=== PATIENT | female | born 2000 | race Caucasian/White ===

== ENCOUNTER 2020-01-06 14:13 | Emergency (ER) | payer BC ==
[~2020-01-06] VITALS: Ht 160 cm; Wt 61.4 kg
[2020-01-06 14:22] VITALS: TEMP 98.3
[2020-01-06 15:20] LABS: BASO % 0.6 % (0.0-2.0); EOS # 0.2 (0.0-0.7); EOS % 2.6 % (0-4.0); GRAN # 3.2 (1.4-6.5); GRAN % 48.7 % (42.2-75.2); HEMATOCRIT 38.6 % (35.0-45.0); HEMOGLOBIN 12.4 g/dl (12.0-15.0); LYMPH # 2.5 (1.2-3.4); LYMPH % 38.5 % (20.0-51.0); MEAN CELL VOLUME 82 fl (80.0-95.0); MEAN CORPUSCULAR HEMOGLOBIN 26 pg (26.0-32.0); MEAN CORPUSCULAR HGB CONC 32 g/dl (33.0-37.0); MEAN PLATELET VOLUME 9.1 fl (7.4-10.4); MONO # 0.6 (0.1-0.6); MONO % 9.4 % (1.7-9.3); PLATELET COUNT 375 K/mm3 (130-400); RED BLOOD COUNT 4.69 M/mm3 (4.10-5.30); REDCELL DISTRIBUTION WIDTH-CV 13.6 % (11.5-14.5)
[2020-01-06 15:33] LABS: ALANINE AMINOTRANSFERASE 13 U/L (4-34); ALBUMIN 4.3 gm/dL (3.5-5.0); ALKALINE PHOSPHATASE 74 U/L (50-136); ANION GAP 7 mmol/L (7-16); AST,SGOT 29 U/L (15-37); BILIRUBIN,TOTAL 0.5 mg/dL (0.0-1.0); BLOOD UREA NITROGEN 11 mg/dL (7-17); CALCIUM 9.6 mg/dL (8.4-10.2); CARBON DIOXIDE 26 mmol/L (22-30); CHLORIDE 103 mmol/L (98-107); CREATININE, serum 0.87 (0.52-1.25); GLUCOSE 95 mg/dL (74-106); LIPASE 57 U/L (23-300); POTASSIUM 4.2 mmol/L (3.4-5.0); SODIUM 136 mmol/L (137-145); TOTAL PROTEIN 7.2 gm/dL (6.4-8.2)
[2020-01-06 15:36] LABS: C-REACTIVE PROTEIN < 0.5 mg/dL (0.0-0.9)
[2020-01-06 17:34] VITALS: BP 104/75; PULSE 68
== END 2020-01-06 17:29 | disposition home or self-care (01) ==
LOC: COL.ER 14:13
PROVIDERS: Emergency Medicine
DX: K92.1 Melena (principal); R10.84 Generalized abdominal pain; Z90.89 Acquired absence of other organs
CPT/HCPCS: J7030; Q9967

== ENCOUNTER 2020-02-15 06:27 | Day surgery (SDC) | payer BC ==
[~2020-02-15] VITALS: Ht 160 cm; Wt 62.4 kg
[2020-02-15 06:33] VITALS: BP 116/81; PULSE 99; TEMP 98.4
--- NOTE | 2020-02-15 07:50 | NUR ---
0730- attempted to place a #22 into left hand of patient; unsuccesful. Asked endo nurseAdriane to start IV. endo nurse stated, 'pt is fainting'. Reclined pt chair and applied wet wash cloth. Notified anesthesia of pt status, anesthesia provider stated he would try to put IV in. Pt stated, "i need to use the bathroom". Asked pt if she could walk with assist or if she wanted a wc. pt stated, 'I can walk'. Pt ambulating to the bathroom with x2 assist. Pt began to sit on the floor. pt diaphoretic, will open eyes to name. Helped pt back on chair and stated she was nauseated. Emesis bag was given to pt, pt vomiting clear emesis. o2 per mask was applied, pt was put on cart and taken to the Endo suite for IV and procedure.
[2020-02-15 08:25] VITALS: BP 100/79; PULSE 120; TEMP 97.6
[2020-02-15 08:30] VITALS: BP 102/78; PULSE 85
[2020-02-15 08:45] VITALS: BP 113/66; PULSE 85
[2020-02-15 09:00] VITALS: BP 98/69; PULSE 75; TEMP 97.6
--- NOTE | 2020-02-15 09:45 | NUR ---
PT A/OX3, SLEEPY. HR TACHY AND REGULAR. LUNGS CLEAR, BOWEL SOUNDS QUIET. PT DENIES PAIN, NAUSEA AND VOMITING. ASKS FOR WATER AND APPLE SAUCE. VSS WILL CONT TO MONITOR.
--- NOTE | 2020-02-15 09:55 | NUR ---
TOLERATING FOOD AND FLUID. ALERT AND ORIENTED. DENIES PAIN. WILL CONT TO MONITOR.
--- NOTE | 2020-02-15 10:01 | NUR ---
PT A/OX3, DENIES PAIN OR NAUSEA. #20 REMOVED FORM RIGHT WRIST. PT TOLERATED WELL. DISMISSAL INSTRUCTIONS GIVEN, PT VOICES UNDERSTANDING. PT CALLED [facility] FOR A RIDE HOME. PT DISCHARGED THROUGH PT ENTRANCE PER , MASK ON AND INTO DAD'S TRUCK.
== END 2020-02-15 09:30 | disposition home or self-care (01) ==
LOC: SDCO 06:27
DX: R19.7 Diarrhea, unspecified (principal); K29.30 Chronic superficial gastritis without bleeding; K25.7 Chronic gastric ulcer without hemorrhage or perforation; J45.909 Unspecified asthma, uncomplicated
CPT/HCPCS: J2704